=== PATIENT | female | born 1970 ===

== ENCOUNTER 2017-03-07 10:18 | Emergency (ER) | payer MEDICAID, OTHER ==
[2017-03-07 10:27] VITALS: BP 141/96; PULSE 79; RESP 18; TEMP 98.4; O2SAT 99
[2017-03-07] MEDS ORDERED: Naproxen 550 mg Tab PO STA (11:15)
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
[2017-03-07] MEDS ORDERED: Naproxen 550 mg Tab PO ONE (11:56)
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
== END 2017-03-07 12:09 | disposition home or self-care (01) ==
LOC: C.ER 10:18
DX: M25.512 Pain in left shoulder (principal); Y08.89XA Assault by other specified means, initial encounter; Y92.89 Other specified places as the place of occurrence of the external cause; Y99.8 Other external cause status